=== PATIENT | female | born 1990 | race Caucasian/White ===

== ENCOUNTER 2019-10-23 12:52 | Outpatient (CLI) | payer OTHER, SELFPAY ==
--- NOTE | 2019-10-23 | ECHO_ITS ---
Patient Info Name: Gayle Overton Age: 28 years : 1990 Gender: Female Ht: 71 in Wt: 165 lbs BSA: 1.94 m2 HR: 60 bpm BP: 126 / 80 mmHg Heart Rhythm: Sinus Rhythm Exam Date: 10/23/2019 1:30 PM Exam Location: [facility] Pulmonary Patient Status: Outpatient Admit Date: 10/23/2019 Staff Ordering Physician: SajiNikhil DO Awning Installer: China Bradford RDCS Attending Provider: SajiNikhil DO Exam Type: CA echo doppler color flow Study Info Indications - HODGKINS LYMPHOMA Complete two-dimensional, color flow and Doppler transthoracic echocardiogram is performed. Summary 1. Left ventricular chamber dimension is mildly enlarged. 2. Left ventricular systolic function is mildly reduced, estimated at 50-55%. 3. There is mildly increased left ventricular wall thickness. 4. The left ventricular diastolic function is normal. 5. There is mild mitral valve regurgitation. 6. The mitral valve has thickened leaflets. 7. There is mild tricuspid valve regurgitation. 8. There is mild pulmonic regurgitation. Left Ventricle Left ventricular chamber dimension is mildly enlarged. Left ventricular systolic function is mildly reduced, estimated at 50-55%. There is mildly increased left ventricular wall thickness. Left ventricular septal wall motion is normal. The left ventricular diastolic function is normal. Right Ventricle Right ventricular chamber dimension is normal. Right ventricular systolic function is normal. Left Atria Left atrial chamber dimension is normal. Right Atria Right atrial chamber dimension is normal. Atrial Septum Intact interatrial septum visualized by color flow imaging. Aortic Valve The aortic valve is trileaflet. There is no aortic valve sclerosis. There is no aortic valve stenosis. There is trace aortic valve regurgitation. Pulmonic Valve The pulmonic valve is normal. There is no pulmonic valve stenosis. There is mild pulmonic regurgitation. Mitral Valve The mitral valve has thickened leaflets. There is no mitral valve stenosis. There is mild mitral valve regurgitation. Tricuspid Valve The tricuspid valve leaflets are normal. There is no significant tricuspid valve stenosis. There is mild tricuspid valve regurgitation. No pulmonary hypertension, estimated pulmonary arterial systolic pressure is 22 mmHg. Pericardium/Pleural The pericardium appears normal. There is no pericardial effusion. Inferior Vena Cava Normal inferior vena cava with >50% collapse upon inspiration consistent with normal right atrial pressure, 5 mmHg. Aorta The aortic root size at the sinus of Valsalva is normal. The prox ascending aorta size is normal. Left Ventricular Outflow Tract Name Value Normal LVOT 2D LVOT Diameter 2.0 cm LVOT Doppler LVOT Peak Gradient 4 mmHg LVOT Mean Gradient 2 mmHg LVOT VTI 19 cm LVOT VTI/AV VTI Ratio 0.7 LVOT Stroke Volume 58 ml LVOT CO 4.7 l/min
== END 2019-10-23 12:53 | disposition home or self-care (01) ==
PROVIDERS: PCP Student in an Organized Health Care Education/Training Program; Visit Provider Internal Medicine Medical Oncology
DX: C81.90 Hodgkin lymphoma, unspecified, unspecified site (principal); I08.3 Combined rheumatic disorders of mitral, aortic and tricuspid valves
CPT/HCPCS: 93306

== ENCOUNTER 2021-04-20 10:34 | Outpatient (RCR) | payer OTHER, SELFPAY ==
[2021-04-22 05:52] LABS: Progesterone 17.5 ng/mL (***)
== END 2021-07-16 23:59 | disposition home or self-care (01) ==
LOC: ANHLAB 10:34
PROVIDERS: PCP Student in an Organized Health Care Education/Training Program; Visit Provider Obstetrics & Gynecology
DX: O20.0 Threatened abortion (principal); Z3A.00 Weeks of gestation of pregnancy not specified
CPT/HCPCS: 36415; 84144; 84702; 86900; 86901

== ENCOUNTER 2021-08-07 16:04 | Emergency (ER) | payer OTHER, SELFPAY ==
--- NOTE | 2021-08-07 16:09 | ED.URI ---
HPI - URI/Sore Throat General Chief Complaint: Shortness of Breath/Dyspnea Stated Complaint: shortness of breath, chest feels heavy Time Seen by Provider: 08/07/21 16:05 Source: patient and RN notes reviewed History of Present Illness HPI Narrative: Patient is a 30-year-old female who presents the urgent care with complaints of difficulty taking a deep breath and chest heaviness. Patient states that she is 21 weeks and did speak to her CODER and her PCP and she was advised to go to the urgent care. Patient states that she does have a history of asthma which seems to have gotten worse in the last week. Patient has been using her inhaler with mild improvement. Patient is also been taking a daily Zyrtec. Only other upper respiratory complaint is nasal congestion. Patient denies of any chest pains. Denies of any changes on exacerbation with ambulation. Denies of any history of blood disorder or blood clot. No other acute complaints. No acute distress noted. Patient aware of the plan of care. Some parts of this dictation were generated by voice recognition software and may contain typographical and/or grammatical inaccuracies. Related Data Home Medications Medication Instructions Recorded Confirmed cetirizine [Zyrtec] 10 mg PO DAILY 08/07/21 08/07/21 [id number] 1 tablet PO POST-TRANSFUSION 08/07/21 08/07/21 [] Allergies Allergy/AdvReac Type Severity Reaction Status Date / Time Penicillins Allergy Unknown Verified 08/07/21 16:14 Review of Systems Review of Systems: CONSTITUTIONAL: Denies fever, chills, or sweats. EYES: Denies visual changes, redness, or discharge. ENT: Denies rhinorrhea, congestion, sore throat, or otalgia. CARDIOVASCULAR: Denies chest pain, palpitations, or edema. RESPIRATORY: Reports of intermittent dyspnea and chest heaviness GASTROINTESTINAL: Denies abdominal pain, nausea, vomiting, or diarrhea. GENITOURINARY: Denies dysuria or hematuria. SKIN: Denies rash or itching. MUSCULOSKELETAL: Denies back pain, joint pain, or myalgia. NEUROLOGIC: Denies headache, numbness, or weakness. All other systems reviewed are negative, except as documented in HPI. PMFSH Comments At the time of my signature, I reviewed and agree with the nursing past medical, surgical, social, and family history. There is no relevant family history pertinent to the patient complaint. Exam Narrative: GENERAL: This is a well-nourished, well-developed patient, in no apparent distress. HEAD: normocephalic, atraumatic. EYES: PERRL. Sclera clear/white. Vision is grossly intact. EARS: External ears normal, auditory canals clear and without drainage, TMs normal without perforation. Hearing grossly intact. NOSE: External nose normal with no obvious nasal discharge, bilateral erythemic nares with clear to yellow rhinorrhea THROAT: Mucous membranes moist, posterior pharynx clear. Moderate postnasal drainage NECK: Neck supple, CARDIOVASCULAR: Regular rate and rhythm without murmurs, gallops, or rubs. RESPIRATORY: Clear to auscultation. Breath sounds equal bilaterally. No wheezes, rales, or rhonchi. GASTROINTESTINAL: Abdomen soft, non-tender, nondistended. SKIN: warm, intact with no suspicious lesions or rash, good texture and turgor. NEURO: awake, alert, and oriented to person, place and time. There were no obvious focal neurologic abnormalities. EXTREMITIES: No clubbing, cyanosis, or edema. Course Course Level of Care: Express Care Visit Vital Signs Vital signs: Vital Signs Temperature 96.9 F L 08/07/21 16:12 Pulse Rate 80 08/07/21 16:12 Respiratory Rate 16 08/07/21 16:12 Blood Pressure 140/83 08/07/21 16:12 Pulse Oximetry 100 08/07/21 16:12 Temperature 96.9 F L 08/07/21 16:17 Pulse Rate 80 08/07/21 16:17 Respiratory Rate 16 08/07/21 16:17 Blood Pressure 140/83 08/07/21 16:17 Pulse Oximetry 100 08/07/21 16:17 Reviewed MDM - URI/Sore Throat MDM Narrative [facility]
[2021-08-07 16:12] VITALS: BP 140/83; PULSE 80; RESP 16; TEMP 36.1; O2SAT 100
[2021-08-07 16:17] VITALS: BP 140/83; PULSE 80; RESP 16; TEMP 36.1; O2SAT 100
== END 2021-08-07 16:37 | disposition home or self-care (01) ==
PROVIDERS: Emergency Provider Nurse Practitioner Family; PCP Student in an Organized Health Care Education/Training Program
DX: O26.892 Other specified pregnancy related conditions, second trimester (principal); J30.9 Allergic rhinitis, unspecified; Z3A.21 21 weeks gestation of pregnancy
CPT/HCPCS: 99213; G0463

== ENCOUNTER 2021-11-24 17:11 | Outpatient (CLI) | payer OTHER, SELFPAY ==
[2021-11-24 17:24] VITALS: BP 138/89; PULSE 84
[2021-11-24 17:30] VITALS: BP 138/77; PULSE 79
[2021-11-24 17:35] LABS: Basophils Percent Auto 0.3 % (0.2-1.2); Eosinophils Absolute Auto 0.1 K/mm3 (0-0.3); Eosinophils Percent Auto 1.1 % (0-4.4); Hematocrit 32.7 % (37.0-47.0); Hemoglobin 11.5 g/dL (12.0-15.0); Immature Granulocyte Absolute 0.16 K/mm3 (0.00-0.031); Immature Granulocyte Percent A 1.4 % (0-0.5); Lymphocytes Absolute Auto 2.47 K/mm3 (0.9-3.2); Lymphocytes Percent Auto 21.8 % (18.3-44.2); Mean Corpuscular HGB Conc 35.2 g/dl (32-36); Mean Corpuscular Hemoglobin 32.7 pg (26-34); Mean Corpuscular Volume 92.9 fl (80-100); Monocytes Absolute Auto 0.7 K/mm3 (0.1-0.6); Monocytes Percent Auto 6.1 % (2.6-8.5); Neutrophils Absolute Auto 7.9 K/mm3 (1.3-6.7); Neutrophils Percent Auto 69.3 % (45.5-73.1); Platelet Count Result 177 k/mm3 (150-375); Red Blood Count 3.52 M/mm3 (4.2-5.4); Red Cell Distribution Width 13.4 % (11.5-14.5); White Blood Count 11.3 K/mm3 (4.5-10.0)
[2021-11-24 17:45] VITALS: BP 130/80; PULSE 79
[2021-11-24 17:47] LABS: Alanine Aminotransferase 19 U/L (6-35); Albumin Level 3.9 g/dL (3.5-5.1); Alkaline Phosphatase 129 U/L (38-126); Anion Gap 12 mmol/L (8-16); Aspartate Amino Transferase 22 U/L (14-36); Bilirubin,Total 0.4 mg/dL (0.2-1.3); Blood Urea Nitrogen 7 mg/dL (7-17); Carbon Dioxide 20 mmol/L (22-30); Chloride 104 mmol/L (98-107); Estimated Glomerular Filt Rate > 60; Glucose 103 mg/dL (65-110); Potassium 3.8 mmol/L (3.4-5.0); Sodium 136 mmol/L (137-145); Uric Acid 4.9 mg/dL (2.5-7.5)
[2021-11-24 18:00] VITALS: BP 127/87; PULSE 73
[2021-11-24 18:30] VITALS: BP 120/75; PULSE 72
[2021-11-24 18:47] LABS: Appearance Urine Slightly Cloudy (Clear); Bilirubin Urine Negative (Negative); Blood Urine Negative (Negative); Color Urine Yellow (Yellow); Glucose Urine UA Negative (Negative); Ketones Urine Negative (Negative); Leukocyte Esterase Ur 2+ LEU/UL (NEGATIVE); Nitrate Urine Negative (Negative); Protein Urine Negative (Negative); Urobilinogen Urine 0.2 mg/dL (<2.0); pH Urine 6.5 (5.0-9.0)
[2021-11-24 18:53] LABS: Amorphous Sediment Urine Few; Bacteria Urine Trace /hpf; Mucus Urine Rare /lpf; RBC Urine 0-2 /hpf (0-2); Squamous Epithelial Cell Urine Few /hpf (Few)
[2021-11-24 18:54] LABS: Add Urine Microscopic? YES
[2021-11-24 19:03] LABS: Total Protein Urine Random 11 mg/dL; Ur Ttl Prot Creatinine Ratio 0.17 mg/mg (0-0.20)
--- NOTE | 2021-11-24 19:08 | PC.NURSE ---
Dr. Romero on unit. Lab results and BPs given. Tracing reviewed. August D/C home.
== END 2021-11-24 19:10 | disposition home or self-care (01) ==
LOC: ANHOBOP 17:15 → ANHOBPP 17:15
PROVIDERS: PCP Student in an Organized Health Care Education/Training Program; Visit Provider Obstetrics & Gynecology
DX: O13.9 Gestational [pregnancy-induced] hypertension without significant proteinuria, unspecified trimester (principal); Z3A.00 Weeks of gestation of pregnancy not specified
CPT/HCPCS: 36415; 59025; 80053; 81001; 82570; 84156; 84550; 85025; 87086; 99199

== ENCOUNTER 2021-12-01 17:42 | Inpatient (IN) | payer OTHER, SELFPAY ==
[2021-12-01] VITALS (12 sets, daily range): BP systolic 113–153; BP diastolic 66–83; PULSE 66–79; TEMP 36.6–36.8; BMI 29.2
--- OUTSIDE RECORDS SUMMARY | 2021-12-01 17:47 | XMS_ITS | Encounter Summary ---
:1990 Author Care Team Providers Name Role Phone Aidan Sheth DO Primary Care Provider [phone] Reason for Visit None recorded. Assessment and Plan 1. Hypertensive disorder ? non-stress test Discussion Note: None recorded.Patient educational handouts: No information available. Plan of Care Reminders Provider Appointments None recorded. ? ? Lab None recorded. ? ? Referral None recorded. ? ? Procedures None recorded. ? ? Surgeries None recorded. ? ? Imaging Non-stress Test 12/01/2021 [place] Medications Name Start Date ? ? ? Zyrtec ? Medications Administered None recorded. Vitals None recorded. Results Lab Results None recorded. Allergies Code Code System Name Reaction Severity Onset Penicillins ? ? ? Problems Name Status Onset Date Source ? Active 06/01/2021 ? Hodgkin's Disease (Clinical) Active ? ? Posttraumatic Stress Disorder Active ? ? Pruritic Urticarial Papules and Plaques of Active ? ? Uterine Size for Dates Discrepancy Active ? ? Tachycardia Active ? ? History of Craniotomy Active ? ? Procedures Date Name Performed by ? 04/04/2017 Biopsy of Lymph Node Information not malu ilable 04/04/2000 Procedure on Brain Information not avai lable 11/17/2021 US, Obstetric, Follow-up [place] [address] [place] [address]
--- OUTSIDE RECORDS SUMMARY | 2021-12-01 17:47 | XMS_ITS | Encounter Summary ---
:1990 Author Care Team Providers Name Role Phone Aidan Sheth DO Primary Care Provider [phone] Reason for Visit OB visit Assessment and Plan 1. Routine care Discussion Note: None recorded.Patient educational handouts: No information available. Plan of Care Reminders Provider Appointments None recorded. ? ? Lab None recorded. ? ? Referral None recorded. ? ? Procedures None recorded. ? ? Surgeries None recorded. ? ? Imaging None recorded. ? ? Medications Name Start Date ? ? ? Zyrtec ? Medications Administered None recorded. Vitals Height 5 ft 11 in Results Lab Results None recorded. Allergies Code [...] Procedure on Brain Information not avai lable 10/19/2021 US, Obstetric, Follow-up [place] [address] [place], [place]
--- OUTSIDE RECORDS SUMMARY | 2021-12-01 17:47 | XMS_ITS | Encounter Summary ---
:1990 Author Care Team Providers Name Role Phone Aidan Sheth DO Primary Care Provider [phone] Reason for Visit OB visit Assessment and Plan 1. -induced hypertension Discussion Note: None recorded.Patient educational handouts: No information available. Plan of Care Reminders Provider Appointments None recorded. ? ? Lab None recorded. ? ? Referral None recorded. ? ? Procedures None recorded. ? ? Surgeries None recorded. ? ? Imaging None recorded. ? ? Medications Name Start Date ? ? ? Zyrtec ? Medications Administered None recorded. Vitals Height Weight BMI Blood Pressure 5 ft 11 in 208 lbs 29 kg/m2 (1) 146/88 mm[H g] (2) 152/80 mm[Hg ] (3) 142/88 mm[Hg ] Results Lab Results None recorded. Allergies Code [...] ilable 04/04/2000 Procedure on Brain Information not bernadette bone
--- OUTSIDE RECORDS SUMMARY | 2021-12-01 17:47 | XMS_ITS ---
:1990 Author Care Team Providers Name Role Phone NINI SHARMA DO Primary Care Provider [phone] Allergies Code Code System Name Reaction Severity Status Onset Penicillins ? ? Active ? Penicillin g Benethamine ? ? Deact ivated ? Medications Name Status Start Date Stop Date ? ? alprazolam 0.25 mg tablet Completed ? 2020 TAKE 1 TO 2 TABLETS BY MOUTH EVERY 8 HOURS NEEDED azithromycin 250 mg tablet Completed ? 02/12 cetirizine 10 mg tablet Completed ? 05/14/19 clindamycin 2 % vaginal cream Completed ? INSERT 1 APPLICATORFUL VAGINALLY EVERY DAY hydroxyzine HCl Completed ? 09/01/2021 hydroxyzine HCl 25 mg tablet Completed ? 02/2021 metronidazole 0.75 % (37.5 mg/5 gram) vaginal gel Completed ? 09/01/2021 INSERT 1 APPLICATORFUL EVERY DAY BY VAGINAL ROUTE FOR 5 DAYS Active ? Not available Zyrtec Active ? Not available Problems Name Status Onset Date Source ? [...] Procedure on Brain Information not avai lable 04/28/2021 US, Obstetric, 1St Trimester [place] [address] [place] [address]
--- OUTSIDE RECORDS SUMMARY | 2021-12-01 17:47 | XMS_ITS | Encounter Summary ---
:1990 Author Care Team Providers Name Role Phone Aidan Sheth DO Primary Care Provider [phone] Reason for Visit None recorded. Assessment and Plan 1. Uterine size for dates discrepancy ? US, obstetric, follow-up Discussion Note: None recorded.Patient educational handouts: No information available. Plan of Care Reminders Provider Appointments None recorded. ? ? Lab None recorded. ? ? Referral None recorded. ? ? Procedures None recorded. ? ? Surgeries None recorded. ? ? Imaging US, Obstetric, Follow-up 11/17/2021 [place] Medications Name Start Date ? ? ? [...] not avai lable 10/19/2021 US, Obstetric, Follow-up [place] [address],
--- OUTSIDE RECORDS SUMMARY | 2021-12-01 17:47 | XMS_ITS | Encounter Summary ---
:1990 Author Care Team Providers Name Role Phone Aidan Sheth Primary Care Provider [phone] Reason for Visit OB visit Assessment and Plan 1. Routine care 2. Pruritic urticarial papules and plaq ues of 3. Uterine size for dates discrepancy Discussion Note: None recorded.Patient educational handouts: No [...] BMI Blood Pressure 5 ft 11 in 202 lbs 28.2 kg/m2 129/85 mm[Hg] Results Lab Results None recorded. Allergies Code [...] ilable 04/04/2000 Procedure on Brain Information not adriai smitha
--- OUTSIDE RECORDS SUMMARY | 2021-12-01 17:47 | XMS_ITS | Encounter Summary ---
:1990 Author Care Team Providers Name Role Phone Aidan Sheth DO Primary Care Provider [phone] Reason for Visit OB visit Assessment and [...] BMI Blood Pressure 5 ft 11 in 211 lbs 29.4 kg/m2 (1) 151/97 mm[H g] (2) 160/80 mm[Hg ] (3) 150/82 mm[Hg ] (4) 140/82 mm[Hg ] Results Lab Results None recorded. [...] Biopsy of Lymph Node Information not malu kary
--- OUTSIDE RECORDS SUMMARY | 2021-12-01 17:47 | XMS_ITS | Encounter Summary ---
:1990 Author Care Team Providers Name Role Phone Aidan Sheth DO Primary Care Provider [phone] Reason for Visit OB visit Assessment and [...] BMI Blood Pressure 5 ft 11 in 206 lbs 28.7 kg/m2 129/82 mm[Hg] Results Lab Results None recorded. Allergies [...] not avai lable 10/19/2021 US, Obstetric, Follow-up [place] [address] [address]
--- OUTSIDE RECORDS SUMMARY | 2021-12-01 17:48 | XMS_ITS | Encounter Summary ---
:1990 Author Care Team Providers Name Role Phone Aidan Sheth DO Primary Care Provider [phone] Reason for Visit None recorded. Assessment and Plan 1. screening ? US, obstetric, follow-up Discussion Note: None recorded.Patient educational handouts: No information available. Plan of Care Reminders Provider Appointments None recorded. ? ? Lab None recorded. ? ? Referral None recorded. ? ? Procedures None recorded. ? ? Surgeries None recorded. ? ? Imaging US, Obstetric, Follow-up 09/01/2021 [place] Medications Name Start Date ? [...] Procedure on Brain Information not avai lable 09/01/2021 US, Obstetric, Follow-up [place] [address] [place] [address]
--- OUTSIDE RECORDS SUMMARY | 2021-12-01 17:48 | XMS_ITS | Encounter Summary ---
:1990 Author Care Team Providers Name Role Phone Aidan Sheth DO Primary Care Provider [phone] Reason for Visit OB visit Assessment and [...] BMI Blood Pressure 5 ft 11 in 201 lbs 28 kg/m2 134/84 mm[Hg] Results Lab Results None recorded. Allergies [...] not avai lable 09/01/2021 US, Obstetric, Follow-up [place] [address]
[2021-12-01 18:27] LABS: Basophils Percent Auto 0.2 % (0.2-1.2); Eosinophils Absolute Auto 0.1 K/mm3 (0-0.3); Eosinophils Percent Auto 0.8 % (0-4.4); Hematocrit 32.4 % (37.0-47.0); Hemoglobin 11.4 g/dL (12.0-15.0); Immature Granulocyte Absolute 0.11 K/mm3 (0.00-0.031); Lymphocytes Absolute Auto 2.35 K/mm3 (0.9-3.2); Mean Corpuscular HGB Conc 35.2 g/dl (32-36); Mean Corpuscular Hemoglobin 32.1 pg (26-34); Mean Corpuscular Volume 91.3 fl (80-100); Mean Platelet Volume 10.1 fl (7.4-10.4); Monocytes Absolute Auto 0.8 K/mm3 (0.1-0.6); Monocytes Percent Auto 7.3 % (2.6-8.5); Neutrophils Absolute Auto 7.8 K/mm3 (1.3-6.7); Neutrophils Percent Auto 69.7 % (45.5-73.1); Platelet Count Result 176 k/mm3 (150-375); Red Blood Count 3.55 M/mm3 (4.2-5.4); Red Cell Distribution Width 13.2 % (11.5-14.5); White Blood Count 11.2 K/mm3 (4.5-10.0)
--- NOTE | 2021-12-01 18:35 | P.HP_ITS ---
H&P: HPI History of Present Illness Date/Time: 12/01/21 18:35 Chief Complaint: induction of labor Narrative: Gayle is a 30yo G1 at 38.1 for IOL PIH. she has white coat HTN/PTSD from Hodgkin's/craniotomy as a child but today in office BPs higher than her anxious normal-- up to 160 systolic and 97 diastolic. no sx. PIH labs wnl last week. NST in office reactive but with subtle prolonged 3 min decel to 120s from baseline of 140s. GBS neg. Baby AC measuring 95%. Review of Systems Review of Systems: All systems reviewed & are unremarkable except as noted in HPI and below [facility] Family History Family History (Updated 11/13/21 @ 13:34 by Boone Jo RN) Father FH: kidney cancer Grandparent Breast cancer in female Mother Hypertension Diabetes mellitus Social History Social History Smoking status: Never smoker Second hand tobacco smoke exposure: No Substance use: never Spiritual care concerns: No Meds Home Medications and Allergies Home Medications Medication Instructions Recorded Confirmed Type mzwrzpnh-hfw-Ys-FA 1 mg 1 tablet PO POST-TRANSFUSION 08/07/21 12/01/21 History tablet Allergies Allergy/AdvReac Type Severity Reaction Status Date / Time Penicillins Allergy Unknown Verified 08/07/21 16:14 Vital Signs Vital Signs - 24 hr 12/01/21 18:23 Pulse Rate 79 Blood Pressure 153/83 H Exam Const: General: no acute distress Resp: Effort & Inspection: normal respiratory effort Auscultation: clear to auscultation bilaterally Cardio: Rate: regular rate Rhythm: regular rhythm GI: GI Palp: Yes Soft to palpation Extrem: General: normal to inspection H&P: Results Labs Labs: Short CBC 12/01/21 Range/Units 18:07 WBC 11.2 H (4.5-10.0) K/mm3 Hgb 11.4 L (12.0-15.0) g/dL Hct 32.4 L (37.0-47.0) % Plt Count 176 (150-375) k/mm3 Assessment and Plan Assessment and plan (1) PIH ( induced hypertension): Code(s): O13.9 - Gestational [-induced] hypertension without significant proteinuria, unspecified trimester Status: Acute Plan pih labs pending iol AROM, pitocin in 4 hours if needed gbs neg monitor bps
[2021-12-01 18:40] LABS: Uric Acid 4.7 mg/dL (2.5-7.5)
[2021-12-01 18:55] LABS: Alanine Aminotransferase 12 U/L (6-35); Albumin Level 3.8 g/dL (3.5-5.1); Alkaline Phosphatase 135 U/L (38-126); Anion Gap 6 mmol/L (8-16); Aspartate Amino Transferase 26 U/L (14-36); Bilirubin,Total 0.3 mg/dL (0.2-1.3); Blood Urea Nitrogen 5 mg/dL (7-17); Calcium 10.9 mg/dL (8.4-10.2); Carbon Dioxide 21 mmol/L (22-30); Chloride 105 mmol/L (98-107); Estimated CRCL calculation 130 ml/min; Estimated Glomerular Filt Rate > 60; Glucose 102 mg/dL (65-110); Potassium 3.7 mmol/L (3.4-5.0); Sodium 132 mmol/L (137-145)
--- NOTE | 2021-12-01 18:57 | WPDANESEPP ---
Anes - Eval Pre Procedure Procedure: labor epidural Date/Time: 12/01/21 18:57 Pre Op Diagnosis: Induction of Labor Patient Data Age: 30 Gender: F Height: 1.8 m Weight: 95 kg Last Vital Signs Pulse 79 12/01/21 18:23 BP 153/83 H 12/01/21 18:23 Allergies Allergy/AdvReac Type Severity Reaction Status Date / Time Penicillins Allergy Unknown Verified 08/07/21 16:14 Home Medications Medication Instructions Recorded Confirmed Type [id number] 1 mg 1 tablet PO POST-TRANSFUSION 08/07/21 12/01/21 History tablet Laboratory Tests 12/01/21 12/01/21 12/01/21 18:06 18:07 18:07 WBC 11.2 K/mm3 H K/mm3 (4.5-10.0) RBC 3.55 M/mm3 L M/mm3 (4.2-5.4) Hgb 11.4 g/dL L g/dL (12.0-15.0) Hct 32.4 % L % (37.0-47.0) MCV 91.3 fl fl (80-100) MCH 32.1 pg pg (26-34) MCHC 35.2 g/dl g/dl (32-36) RDW 13.2 % % (11.5-14.5) Plt Count 176 k/mm3 k/mm3 (150-375) MPV 10.1 fl fl (7.4-10.4) Immature Gran % (Auto) 1.0 % H % (0-0.5) Neut % (Auto) 69.7 % % (45.5-73.1) Lymph % (Auto) 21.0 % % (18.3-44.2) [place] % (Auto) 7.3 % % (2.6-8.5) Eos % (Auto) 0.8 % % (0-4.4) Baso % (Auto) 0.2 % % (0.2-1.2) Lymph # (Auto) 2.35 K/mm3 K/mm3 (0.9-3.2) [place] # (Auto) 0.8 K/mm3 H K/mm3 (0.1-0.6) Eos # (Auto) 0.1 K/mm3 K/mm3 (0-0.3) Baso # (Auto) 0.0 K/mm3 K/mm3 (0.0-0.1) Abs Immat Gran (auto) 0.11 K/mm3 H K/mm3 (0.00-0.031) Absolute Neuts (auto) 7.8 K/mm3 H K/mm3 (1.3-6.7) Absolute Nucleated RBC 0.0 K/mm3 K/mm3 (0.0-0.012) Nucleated RBC % 0.0 % % (0.0-0.2) Sodium Potassium Chloride Carbon Dioxide Anion Gap BUN Creatinine Estim Creat Clear Calc Estimated GFR Glucose Uric Acid 4.7 mg/dL mg/dL (2.5-7.5) Calcium Total Bilirubin AST ALT Alkaline Phosphatase Total Protein Albumin RPR Blood Type Pending Antibody Screen Pending 12/01/21 12/01/21 18:07 18:07 WBC RBC Hgb Hct MCV MCH MCHC RDW Plt Count MPV Immature Gran % (Auto) Neut % (Auto) Lymph % (Auto) [place] % (Auto) Eos % (Auto) Baso % (Auto) Lymph # (Auto) [place] # (Auto) Eos # (Auto) Baso # (Auto) Abs Immat Gran (auto) Absolute Neuts (auto) Absolute Nucleated RBC Nucleated RBC % Sodium 132 mmol/L L mmol/L (137-145) Potassium 3.7 mmol/L mmol/L (3.4-5.0) Chloride 105 mmol/L mmol/L (98-107) Carbon Dioxide 21 mmol/L L mmol/L (22-30) Anion Gap 6 mmol/L L mmol/L (8-16) BUN 5 mg/dL L mg/dL (7-17) Creatinine 0.70 mg/dL mg/dL (0.7-1.0) Estim Creat Clear Calc 130 ml/min ml/min Estimated GFR > 60 (59 - ) Glucose 102 mg/dL mg/dL (65-110) Uric Acid Calcium 10.9 mg/dL H mg/dL (8.4-10.2) Total Bilirubin 0.3 mg/dL mg/dL (0.2-1.3) AST 26 U/L U/L (14-36) ALT 12 U/L U/L (6-35) Alkaline Phosphatase 135 U/L H U/L (38-126) Total Protein 7.0 g/dL g/dL (6.3-8.2) Albumin 3.8 g/dL g/dL (3.5-5.1) RPR Pending Blood Type Antibody Screen Patient hx anesthesia problems: none Family hx anesthesia problems: none Results Review: All pre-operative results and documents have been reviewed as part of the pre-operative evaluation. PMFSH Family History Family History
[2021-12-02] VITALS (130 sets, daily range): BP systolic 86–153; BP diastolic 38–96; PULSE 26–157; RESP 16–18; TEMP 36.4–36.7; O2SAT 90–100
[2021-12-02] MEDS: LACTATED RINGERS 1,000 ML 125 ML IV CONT ×2 (01:35→05:07)
[2021-12-02] MEDS: ONDANSETRON INJ 4 MG/2 ML VIAL IV PUSH (07:08)
[2021-12-02 07:55] LABS: Rapid Plasma Reagin Non-Reactive (NonReactive)
[2021-12-02] MEDS: OXYTOCIN 30 UNITS/NS 500 ML 30 UNITS/500 ML BAG 999 UNITS IV CONT (09:58)
--- NOTE | 2021-12-02 10:04 | PM.OBPRVD ---
OB - Delivery Note Procedure Delivery date: 12/02/21 Procedure: Events: Gestational Hypertension Induction method: AROM Delivery monitor: External FHT and External Uterine Laceration Description: Perineal - 2nd Degree Delivery repair: vicryl Quantitative Blood Loss (ml): 320 Anesthesia type: Epidural Disposition: Floor Narrative: With adequate expulsive efforts by the mother, the baby's head was delivered OA. The baby's anterior shoulder was delivered under the pubic symphysis without difficulty. The posterior shoulder and the rest of the baby delivered without difficulty. The infant was placed on the mothers chest and suctioned and stimulated. The cord was clamped and cut after 30 seconds. Mother and baby both stable. [place] Baby Date of : 12/02/21 Time of : 09:43 Weeks of gestation at delivery: 38 gender: Female Weight (pounds): 8 Weight (ounces): 4 presentation: vertex Placenta delivery description: Spontaneous Cord Vessel Description: 3 Vessels and Delayed Cord Clamping score one minute: 8 score five minutes: 9
[2021-12-02] MEDS: IBUPROFEN 600 MG TABLET PO ×2 (11:57→18:47)
[2021-12-02] MEDS: WITCH HAZEL 40 PADS 1 PAD TOPICAL (11:58)
[2021-12-02] MEDS: BENZOCAINE 20% AER SPR (*SP) 56 GM CAN 1 SPRAY TOPICAL (11:58)
--- NOTE | 2021-12-02 16:18 | PC.NURSE ---
[id number] Introductions were made, then consulted with patient to assess needs related to . Mother led the conversation with her?plans to feed?her infant and the?experience so far. Resources provided for inpatient and outpatient services using a resource guide and mom/baby guide. Mother voiced understanding of information and requested assistance. Primary RN is at bedside. Mother works well with her infant with encouragement and education. Encouraged understanding of the benefits of skin to skin (unwrapping and placing vertically on her chest), responsive feeding and how to watch for early feeding signs, frequency of feeding on demand about every 8-12 times in 24 hours (every 2-3 hours), milk production, duration of feeding, signs of adequate intake/output and how to record on the feeding sheet. Reviewed massage touch with skin to skin, hand expression reviewed and practiced, and is sleepy and reluctant. Resources used to facilitate learning were used with the visual handouts, QR code videos, tool, mom and baby guide. Mother voiced understanding of responsive feedings, stimulating with skin to skin, hand expressed colostrum, massage touch, position changes, and talking to infant to encourage if it has been 2 -3 hours since the start of the last , to call if infant does not latch, difficulty waking infant for feeding or there is discomfort with . Reported to the primary RN.
[2021-12-02] MEDS: DOCUSATE SODIUM 100 MG CAPSULE PO (17:09)
[2021-12-03] MEDS: IBUPROFEN 600 MG TABLET PO ×4 (02:33→22:51)
[2021-12-03 04:40] VITALS: BP 112/78; PULSE 80; RESP 18; TEMP 36.6
[2021-12-03 05:31] LABS: Hematocrit 23.8 % (37.0-47.0); Hemoglobin 8.1 g/dL (12.0-15.0)
--- NOTE | 2021-12-03 07:30 | PC.NURSE ---
PT introductions made and plan of care discussed per post , pain management, breast feeding, daily care activities and PIH symptoms. PT and spouse both received instructions via one to one discussion, mom baby care guide and demonstrations this shift. NO barriers to learning identified at this time. PT verbalized understanding of such care.
--- NOTE | 2021-12-03 07:38 | WPDANLDPN2 ---
Anes-Prog Note L&D Date/Time: 12/03/21 07:38 Comfortable throughout: labor and delivery Neuraxial method: epidural Epidural/Spinal procedure site: clean & non-tender Neuro status: Neuro function grossly intact. Cardiovascular status: normal Respiratory status: normal Airway patency: baseline Mental status: baseline Post-Op hydration status: normal Vital Signs: Last Vital Signs Temp 36.6 C 12/03/21 04:40 Pulse 80 12/03/21 04:40 Resp 18 12/03/21 04:40 BP 112/78 12/03/21 04:40 Pulse Ox 98 12/02/21 17:15 O2 Del Method Room Air 12/02/21 20:00 Pain score (VAS): 0 I/O: Intake & Output 12/02/21 12/02/21 12/03/21 15:59 23:59 07:59 Intake Total 8056 111 4567 Output Total 370 1850 Balance 1130 500 -850 Post-procedural complaints: none Patient feedback: Patient satisfied with anesthetic care.
[2021-12-03 07:50] VITALS: BP 121/74; PULSE 86; RESP 18; TEMP 36.4; O2SAT 98
--- NOTE | 2021-12-03 08:08 | PM.OBPNVD ---
OB - PN: Subj Subjective Date/time seen: 12/03/21 08:08 Patient comments: no complaints, pain well controlled, incisional pain, tolerating diet and flatus present OB - PN: Obj Data Labs CBC & Chem 7: 12/03/21 04:54 12/01/21 18:07 Labs: Laboratory Results - last 24 hr 12/03/21 04:54 Hgb 8.1 L D Hct 23.8 L OB - PN A/P Plan day: 1 Plan: routine care Comments: No problems, routine care Time Spent With Patient Time: Total time spent is greater than 50% in coordination of care (as documented) at patient's floor/unit and/or counseling patient: Exam Const: General: comfortable, no acute distress and alert Resp: Effort & Inspection: normal respiratory effort Auscultation: no crackles, no rales and no rhonchi Cardio: Rate: regular rate Heart sounds: no click, no murmurs and no rubs GI: Inspection: non-distended GI Palp: No Tenderness to palpation present (GI) Auscultation: normal bowel sounds Other: Incision - CDI Extrem: General: normal to inspection, no pedal edema and no calf tenderness
[2021-12-03 09:40] VITALS: PULSE 91; RESP 16; O2SAT 99
[2021-12-03] MEDS: LANOLIN (LANSINOH) 7.5 GM CREAM 1 APPLIC TOPICAL (09:40)
[2021-12-03] MEDS: DOCUSATE SODIUM 100 MG CAPSULE PO ×2 (09:40→16:15)
[2021-12-03] MEDS: POLYSACCHARIDE IRON COMPLEX 150 MG CAPSULE PO ×2 (09:41→16:15)
[2021-12-03] MEDS: MULTIVIT/MIN/PREN/FOL AC/IRON TABLET 1 TAB PO (09:41)
--- NOTE | 2021-12-03 09:47 | PC.NURSE ---
[id number] Consulted with patient to assess needs related to . is skin to skin with father of the baby. Mother led conversation with her experience with feeding baby through the night. Mother works well with her infant with encouragement. Reviewed working with infant, using the sandwich hold with the breast, stimulating the nipples and how to protect the nipples with an optimal deep latch, good positioning, and good hand washing. Encouraged understanding the benefits of skin to skin, responding to feeding cues, frequencies of feeding 8-12 times in 24 hours (approximately 2-3 hours), duration of feedings, milk production, intake/output feeding sheet and signs of adequate intake encouraging swallowing at the breast. Mother doesn't express colostrum with hand expression at this time but demonstrates good technique working with her breast. Reviewed positioning and alignment, supporting breast, off-centered (asymmetrical latch) and leading with the chin with big open wide gape. Infant latched right breast in cross cradle position. Infant attempted to suck a few times with good rocking jaw movement, then held the nipple in her mouth. After attempting to encourage and latch for 20 min without an optimal latch, infant went to father of the baby so mother could eat her breakfast. was not able to maintain latch beyond a few sucks each time. is sleepy and reluctant. Nipple care reviewed with optimal latch and good positioning. Discussed the risks and benefits of using the nipple shield and pumping. Encouraged hand expression and pumping for stimulating the milk production if continues to not latch or mother uses the nipple shield. Mother voiced understanding of the education shared, calling for assistance if the does not latch, difficulty waking to latch, or if there is discomfort with . Reported to the primary RN.
[2021-12-03 11:59] VITALS: BP 123/74; PULSE 91; RESP 16; TEMP 36.5; O2SAT 99
--- NOTE | 2021-12-03 12:03 | PC.NURSE ---
[id number] Mother is skin to skin with her infant. Mother states she finished an attempt to latch her infant. Blood sugar was checked and resulted at 51 mg/dl. Breast pump provided due to ineffective . Instructions given on cleaning, care, usage, that there should be no pain, pumping schedule for milk production, collection, and storage of human milk. Parents are encouraged to record pumping schedule on the feeding sheet. Patient was assessed for correct placement, flange size, to pump for comfort and nipple stretching/stimulation for adequate milk production every 3 hours (8 times in 24 hours) 1-2 times at night if is not latching, or if she is using a nipple shield with every feeding. Mother voiced understanding of the education shared along with mom and baby guide for additional resource information. Reported to the primary RN.
--- NOTE | 2021-12-03 12:57 | PC.NURSE ---
[id number] - Father of baby finger fed while the 1 ml of pumped colostrum was given to the via a syringe. With infant quiet, alert, and awake mother spent some time practicing latching infant to the breast using football positioning the sandwich hold of the breast. There were rare latches with good rocking motion and no misshaped nipple. Several attempts were made to each breast over a 20 minute time span, then mother was encouraged to eat lunch and more attempts can be made later. Mother voiced understanding of calling for assistance if her did not latch, there's pain with latching, needs assistance stimulating infant to breastfeed 2 1/2 hours after the start of the last feeding, or assistance pumping and collecting milk. Reported to the Primary RN
[2021-12-03 16:00] VITALS: BP 125/83
[2021-12-03 19:30] VITALS: BP 115/75; PULSE 88; RESP 16; TEMP 36.4; O2SAT 99
[2021-12-04 04:30] VITALS: BP 119/79
[2021-12-04] MEDS: IBUPROFEN 600 MG TABLET PO (05:46)
--- NOTE | 2021-12-04 07:41 | PM.OBPNVD ---
OB - PN: Subj Subjective Date/time seen: 12/04/21 07:41 Patient comments: no complaints and pain well controlled baby status: doing well [place] feeding status: breast and bottle feeding OB - PN: Obj Data Labs CBC & Chem 7: 12/03/21 04:54 12/01/21 18:07 OB - PN A/P Plan day: 2 Plan: routine care and discharge home Time Spent With Patient Time: Total time spent is greater than 50% in coordination of care (as documented) at patient's floor/unit and/or counseling patient: Time with patient: less than 15 minutes Exam Narrative: NAD abdomen soft, nontender, fundus firm below the umbilicus Extremities nontender, 1+ edema
--- NOTE | 2021-12-04 07:44 | PM.DS ---
DS: Admitting Diagnosis Discharge Date 12/03/21 Admitting Diagnosis IUP 38.2, PIH DS: Discharge Diagnosis Discharge Diagnosis (1) , delivered: Code(s): O80 - Encounter for full-term uncomplicated delivery Status: Acute DS: Summary Hospital Course Hospital Course: Gayle was admitted for IOL for PIH at term. She proceeded to have an uncomplicated vaginal delivery and course. She was discharged on PPD 2. Status at Discharge Functional status at discharge: independent ambulation Time Spent with Patient Time attestation: Total time spent providing and/or coordinating discharge services: Exam Narrative: NAD abdomen soft, appropriately tender Ext non tender, 1+ edema Discharge Plan Discharge Attending physician on discharge: Ellen Romero Discharging Clinician: Ellen Romero Anticipated Discharge Date/Time: 12/04/21 07:42 Patient Disposition: Home, Self-Care Activity: pelvic rest Diet: regular Discharge Instructions: Take over the counter iron daily for 60 days. Patient Instructions: Antibiotic Form Stand Alone Forms: General Discharge Information Follow-up/Referrals: Ellen Romero MD [Physician] - 4 Weeks Discharge Medications: Continued 1 mg Tablet 1 tablet PO POST-TRANSFUSION Date of admission: 12/01/21 17:42 Primary Care Provider: Domenic,Aidan Admitting Provider: Ellen Romero Attending physician on admission: Ellen Romero Condition: Stable
[2021-12-04 08:05] VITALS: BP 120/80; PULSE 80; RESP 16; TEMP 36.5; O2SAT 99
[2021-12-04] MEDS: DOCUSATE SODIUM 100 MG CAPSULE PO (09:54)
[2021-12-04] MEDS: POLYSACCHARIDE IRON COMPLEX 150 MG CAPSULE PO (09:54)
[2021-12-04] MEDS: MULTIVIT/MIN/PREN/FOL AC/IRON TABLET 1 TAB PO (09:54)
[2021-12-07 07:58] VITALS: BP 127/87; PULSE 81; RESP 20; TEMP 37.1; O2SAT 100
== END 2021-12-04 10:32 | disposition home or self-care (01) | DRG 807 ==
LOC: ANHLDR 12-02 13:58 → ANHOB2 12-02 14:37
PROVIDERS: Admitting Provider Obstetrics & Gynecology; PCP Student in an Organized Health Care Education/Training Program; Visit Provider Obstetrics & Gynecology
DX: O13.4 Gestational [pregnancy-induced] hypertension without significant proteinuria, complicating childbirth (principal); Z37.0 Single live birth; O70.1 Second degree perineal laceration during delivery; O76 Abnormality in fetal heart rate and rhythm complicating labor and delivery; Z3A.38 38 weeks gestation of pregnancy; Z88.0 Allergy status to penicillin
CPT/HCPCS: 36415; 80053; 84550; 85014; 85018; 85025; 86592; 86850; 86900; 86901; A9270; J2405; J2590; J2795; J7120

== ENCOUNTER 2022-10-15 11:44 | Outpatient (CLI) | payer OTHER, SELFPAY ==
[2022-10-20 14:16] LABS: Progesterone 8.8 ng/mL (***)
== END 2022-10-15 11:45 | disposition home or self-care (01) ==
LOC: ANHLAB 11:45
PROVIDERS: PCP Student in an Organized Health Care Education/Training Program; Visit Provider Obstetrics & Gynecology
DX: O26.843 Uterine size-date discrepancy, third trimester (principal); Z3A.36 36 weeks gestation of pregnancy
CPT/HCPCS: 36415; 84144; 84702

== ENCOUNTER 2022-10-17 10:09 | Outpatient (CLI) | payer OTHER, SELFPAY | END 2022-10-17 10:10 | disposition home or self-care (01) | LOC: ANHOBOP 10:17 | PROVIDERS: PCP Student in an Organized Health Care Education/Training Program; Visit Provider Obstetrics & Gynecology | DX: O26.843 Uterine size-date discrepancy, third trimester (principal); Z3A.36 36 weeks gestation of pregnancy | CPT/HCPCS: 36415; 84702 ==

== ENCOUNTER 2022-12-31 15:14 | Outpatient (RCR) | payer OTHER, SELFPAY ==
[2022-12-29 17:40] LABS: Beta HCG Quantitative 79.65 mIU/ML
[2022-12-31 16:15] LABS: Beta HCG Quantitative 187.65 mIU/ML
== END 2023-03-29 23:59 | disposition home or self-care (01) ==
LOC: ANHLAB 15:14
PROVIDERS: PCP Student in an Organized Health Care Education/Training Program; Visit Provider Obstetrics & Gynecology
DX: N91.2 Amenorrhea, unspecified (principal)
CPT/HCPCS: 36415; 84702

== ENCOUNTER 2023-08-01 16:19 | Outpatient (CLI) | payer OTHER, SELFPAY ==
[2023-08-01] VITALS (12 sets, daily range): BP systolic 148–149; BP diastolic 81–89; PULSE 76–90; O2SAT 97–100
--- NOTE | 2023-08-01 16:32 | ECG_ITS ---
SEE SCANNED COPY FOR CONFIRMED REPORT MTDD
[2023-08-01 16:51] LABS: Basophils Absolute Auto 0.1 K/mm3 (0.0-0.1); Basophils Percent Auto 0.4 % (0.2-1.2); Eosinophils Absolute Auto 0.1 K/mm3 (0-0.3); Hematocrit 33.2 % (37.0-47.0); Hemoglobin 11.4 g/dL (12.0-15.0); Immature Granulocyte Absolute 0.33 K/mm3 (0.00-0.031); Immature Granulocyte Percent A 2.5 % (0-0.5); Lymphocytes Absolute Auto 2.59 K/mm3 (0.9-3.2); Mean Corpuscular HGB Conc 34.3 g/dl (32-36); Mean Corpuscular Hemoglobin 32.3 pg (26-34); Mean Corpuscular Volume 94.1 fl (80-100); Mean Platelet Volume 10.1 fl (7.4-10.4); Monocytes Absolute Auto 0.8 K/mm3 (0.1-0.6); Neutrophils Absolute Auto 9.1 K/mm3 (1.3-6.7); Neutrophils Percent Auto 70.1 % (45.5-73.1); Platelet Count Result 155 k/mm3 (150-375); Red Blood Count 3.53 M/mm3 (4.2-5.4); Red Cell Distribution Width 13.3 % (11.5-14.5)
[2023-08-01 17:03] LABS: Alanine Aminotransferase 13 U/L (6-35); Albumin Level 3.9 g/dL (3.5-5.1); Alkaline Phosphatase 84 U/L (38-126); Anion Gap 6 mmol/L (4-12); Aspartate Amino Transferase 19 U/L (14-36); Bilirubin,Total 0.5 mg/dL (0.2-1.3); Blood Urea Nitrogen 9 mg/dL (7-17); Calcium 8.9 mg/dL (8.4-10.2); Carbon Dioxide 19 mmol/L (22-30); Chloride 108 mmol/L (98-107); Estimated Glomerular Filt Rate > 60; Glucose 98 mg/dL (65-110); Potassium 3.6 mmol/L (3.4-5.0); Sodium 133 mmol/L (137-145)
[2023-08-01 17:07] LABS: Creatinine Urine 40.4 mg/dL; Total Protein Urine Random 14 mg/dL; Ur Ttl Prot Creatinine Ratio 0.35 mg/mg (0-0.20)
[2023-08-01 17:12] LABS: Appearance Urine Clear (Clear); Bacteria Urine Rare /hpf; Bilirubin Urine Negative (Negative); Blood Urine Negative (Negative); Color Urine Yellow (Yellow); Glucose Urine UA Negative (Negative); Ketones Urine 1+ mg/dL (Negative); Leukocyte Esterase Ur 1+ LEU/UL (Negative); Need Manual Microscopic Reviewed; Nitrate Urine Negative (Negative); Non Pathogenic Casts 0-2; Protein Urine Negative (Negative); RBC Urine 0-2 /hpf (0-2); Specific Grav Ur 1.007 (1.001-1.035); Squamous Epithelial Cell Urine Few /hpf (Few); Urobilinogen Urine 0.2 mg/dL (<2.0); WBC Urine 0-5 /hpf (0-3)
[2023-08-01 17:16] LABS: Add Urine Microscopic? YES
== END 2023-08-01 17:34 | disposition home or self-care (01) ==
LOC: ANHOBOP 16:24 → ANHOBPP 16:27
PROVIDERS: PCP Student in an Organized Health Care Education/Training Program; Visit Provider Obstetrics & Gynecology
DX: R00.2 Palpitations (principal); O13.9 Gestational [pregnancy-induced] hypertension without significant proteinuria, unspecified trimester; Z3A.00 Weeks of gestation of pregnancy not specified
CPT/HCPCS: 36415; 59025; 80053; 81001; 82570; 84156; 84550; 85025; 93005; 99199

== ENCOUNTER 2023-08-04 15:19 | Outpatient (RCR) | payer OTHER, SELFPAY ==
[2023-08-04 19:05] VITALS: BP 146/86; PULSE 81
== END 2023-09-19 08:23 | disposition home or self-care (01) ==
LOC: ANHOBOP 15:19
PROVIDERS: PCP Student in an Organized Health Care Education/Training Program; Visit Provider Obstetrics & Gynecology
DX: O26.893 Other specified pregnancy related conditions, third trimester (principal); R03.0 Elevated blood-pressure reading, without diagnosis of hypertension; Z3A.35 35 weeks gestation of pregnancy
CPT/HCPCS: 59025

== ENCOUNTER 2023-08-12 06:39 | Inpatient (IN) | payer OTHER, SELFPAY ==
[2023-08-12] VITALS (101 sets, daily range): BP systolic 109–154; BP diastolic 52–97; PULSE 63–238; TEMP 36.6; O2SAT 97–100; BMI 29.5
[2023-08-12 08:11] LABS: Basophils Percent Auto 0.3 % (0.2-1.2); Eosinophils Absolute Auto 0.1 K/mm3 (0-0.3); Eosinophils Percent Auto 0.9 % (0-4.4); Hematocrit 33.5 % (37.0-47.0); Hemoglobin 11.8 g/dL (12.0-15.0); Immature Granulocyte Absolute 0.26 K/mm3 (0.00-0.031); Immature Granulocyte Percent A 2.4 % (0-0.5); Lymphocytes Absolute Auto 1.85 K/mm3 (0.9-3.2); Lymphocytes Percent Auto 17.1 % (18.3-44.2); Mean Corpuscular HGB Conc 35.2 g/dl (32-36); Mean Corpuscular Hemoglobin 32.7 pg (26-34); Mean Corpuscular Volume 92.8 fl (80-100); Mean Platelet Volume 10.2 fl (7.4-10.4); Monocytes Absolute Auto 0.7 K/mm3 (0.1-0.6); Monocytes Percent Auto 6.3 % (2.6-8.5); Neutrophils Absolute Auto 7.9 K/mm3 (1.3-6.7); Platelet Count Result 140 k/mm3 (150-375); Red Blood Count 3.61 M/mm3 (4.2-5.4); White Blood Count 10.8 K/mm3 (4.5-10.0)
[2023-08-12 08:21] LABS: Alanine Aminotransferase 13 U/L (6-35); Albumin Level 3.6 g/dL (3.5-5.1); Alkaline Phosphatase 79 U/L (38-126); Anion Gap 8 mmol/L (4-12); Aspartate Amino Transferase 18 U/L (14-36); Bilirubin,Total 0.5 mg/dL (0.2-1.3); Blood Urea Nitrogen 9 mg/dL (7-17); Calcium 9.7 mg/dL (8.4-10.2); Carbon Dioxide 18 mmol/L (22-30); Chloride 110 mmol/L (98-107); Estimated Glomerular Filt Rate > 60; Glucose 102 mg/dL (65-110); Potassium 3.5 mmol/L (3.4-5.0); Sodium 136 mmol/L (137-145)
[2023-08-12] MEDS: miSOPROStol 25 MCG TABLET 50 MCG BY MOUTH ×2 (08:43→12:47)
--- NOTE | 2023-08-12 08:47 | LDADM ---
This patient, Gayle Overton, was admitted to Labor/Delivery/Recovery 102 on 08/12/23 at 06:39. Plans for labor, pain management and were discussed with patient. Patient/family oriented to hospital policies and general routines including ID bracelet, bed and alarms, visiting hours, pain management, procedures, bathroom and other care routines, personal items, smoking policy, room service/diet and guest tray routines, security routines, and visiting hours. Patient/Family are encouraged to report perceived risks to care and to ask questions if they do not understand what they are told or what they should do. See OBIX for further documentation.
[2023-08-12 11:19] LABS: Rapid Plasma Reagin Non-Reactive (NonReactive)
--- NOTE | 2023-08-12 11:38 | PM.IMHP ---
H&P: HPI History of Present Illness Date/Time: 08/12/23 11:38 Chief Complaint: preeclampsia without severe features Narrative: Patient is a 32 year old who presents for medical induction of labor, indicated for preeclampsia without severe features. She denies a history of cHTN in this . testing and labwork has been unremarkable. On admission, her blood pressure was 120s/80s. Her has been otherwise uncomplicated. She denies contractions, vaginal bleeding and leakage of fluid, and reports good movement. Review of Systems Review of Systems: All systems reviewed & are unremarkable except as noted in HPI and below PMFSH Family History Family History Father FH: kidney cancer Grandparent Breast cancer in female Mother Hypertension Diabetes mellitus Social History Social History Smoking status: Never smoker Second hand tobacco smoke exposure: No Substance use: never Do You Feel Safe in your Home?: Yes Lack of Transportation: No Lack of Food: Never True Current Housing: I Have Housing Concerned About Future Housing: No Difficulty Paying Gas/Electric Bills: No Difficulty Paying for Meds: No Currently Unemployed: No Education: Master's Degree or Higher Difficulty w/ Childcare or Family Care: No Spiritual care concerns: No Meds Home Medications and Allergies Home Medications Medication Instructions Recorded Confirmed Type mgnbvfwi-epy-[id number] 1 mg 1 tablet PO DAILY 08/07/21 08/12/23 History tablet aspirin 81 mg capsule 81 mg PO DAILY 08/04/23 08/12/23 History levothyroxine 25 mcg tablet 25 mcg PO DAILY 08/04/23 08/12/23 History Allergies Allergy/AdvReac Type Severity Reaction Status Date / Time Penicillins Allergy Unknown Verified 08/04/23 15:41 Vital Signs Vital Signs - 24 hr 08/12/23 08:45 08/12/23 08:56 08/12/23 08:59 Temperature Pulse Rate 83 83 Blood Pressure 118/78 117/74 Oxygen Delivery Room Air 08/12/23 09:14 08/12/23 09:30 08/12/23 09:45 Temperature Pulse Rate 85 81 78 Blood Pressure 118/72 120/85 122/82 Oxygen Delivery 08/12/23 09:00 08/12/23 10:00 08/12/23 10:15 Temperature 97.9 F Pulse Rate 95 82 Blood Pressure 134/76 124/74 Oxygen Delivery 08/12/23 10:30 08/12/23 10:45 08/12/23 11:00 Temperature Pulse Rate 85 85 90 Blood Pressure 119/69 122/69 131/79 Oxygen Delivery Exam Const: General: comfortable and no acute distress Eyes: General: appearance normal, both eyes and all related structures Neck: Neck: supple Resp: Effort & Inspection: normal respiratory effort Cardio: Rate: regular rate Rhythm: regular rhythm GI: GI Palp: Yes Soft to palpation and No Tenderness to palpation present (GI) : Other: SVE 0.5cm/50/-2 Skin: General skin exam: normal color Neuro: General: gait normal Extrem: General: normal to inspection Psych: Mental Status: mental status grossly normal H&P: Results Labs Labs: Short CBC 08/12/23 Range/Units 07:54 WBC 10.8 H (4.5-10.0) K/mm3 Hgb 11.8 L (12.0-15.0) g/dL Hct 33.5 L (37.0-47.0) % Plt Count 140 L (150-375) k/mm3 BMP 08/12/23 07:54 Sodium 136 L Potassium 3.5 Chloride 110 H Carbon Dioxide 18 L BUN 9 Creatinine 0.60 L Glucose 102 Calcium 9.7 Liver Function 08/12/23 Range/Units 07:54 Total Bilirubin 0.5 (0.2-1.3) mg/dL AST 18 (14-36) U/L ALT 13 (6-35) U/L Alkaline Phosphatase 79 (38-126) U/L Albumin 3.6 (3.5-5.1) g/dL Assessment and Plan Assessment and plan (1) Pre-eclampsia affecting , antepartum: Code(s): O14.90 - Unspecified pre-eclampsia, unspecified trimester Status: Acute Assessment and Plan: - preeclampsia without severe features - asymptomatic - BP 110s-120/80s since admission;
--- NOTE | 2023-08-12 16:58 | PM.OBPNLAB ---
Pain Control Date/time seen: 08/12/23 16:58 Comments: SVE /-2 AROM, moderate amount of clear, odorless fluid, anticipate vaginal delivery
[2023-08-12] MEDS: LACTATED RINGERS 500 ML 999 ML IV CONT (17:27)
[2023-08-12] MEDS: LACTATED RINGERS 1,000 ML 125 ML IV CONT (18:32)
--- NOTE | 2023-08-12 18:44 | WPDANESEPPF ---
Anes - Initial Pre Proc Eval Procedure: labor epidural Date/Time: 08/12/23 18:44 Surgeon: Derek Hartman MD Pre Op Diagnosis: labor pain Pre Op Diagnosis: Induction of Labor Patient Data Age: 32 Gender: F Height: 1.8 m Weight: 96 kg Last Vital Signs Temp 36.6 C 08/12/23 17:30 Pulse 91 08/12/23 18:39 BP 134/82 08/12/23 18:39 Pulse Ox 99 08/12/23 18:40 O2 Del Method Room Air 08/12/23 08:45 Allergies Allergy/AdvReac Type Severity Reaction Status Date / Time Penicillins Allergy Unknown Verified 08/04/23 15:41 Home Medications Medication Instructions Recorded Confirmed Type chmixeaz-zee-Rr-FA 1 mg 1 tablet PO DAILY 08/07/21 08/12/23 History tablet aspirin 81 mg capsule 81 mg PO DAILY 08/04/23 08/12/23 History levothyroxine 25 mcg tablet 25 mcg PO DAILY 08/04/23 08/12/23 History Laboratory Tests 08/12/23 07:54 WBC 10.8 H K/mm3 (4.5-10.0) RBC 3.61 L M/mm3 (4.2-5.4) Hgb 11.8 L g/dL (12.0-15.0) Hct 33.5 L % (37.0-47.0) MCV 92.8 fl (80-100) MCH 32.7 pg (26-34) MCHC 35.2 g/dl (32-36) RDW 13.0 % (11.5-14.5) Plt Count 140 L k/mm3 (150-375) MPV 10.2 fl (7.4-10.4) Immature Gran % (Auto) 2.4 H % (0-0.5) Neut % (Auto) 73.0 % (45.5-73.1) Lymph % (Auto) 17.1 L % (18.3-44.2) [place] % (Auto) 6.3 % (2.6-8.5) Eos % (Auto) 0.9 % (0-4.4) Baso % (Auto) 0.3 % (0.2-1.2) Lymph # (Auto) 1.85 K/mm3 (0.9-3.2) [place] # (Auto) 0.7 H K/mm3 (0.1-0.6) Eos # (Auto) 0.1 K/mm3 (0-0.3) Baso # (Auto) 0.0 K/mm3 (0.0-0.1) Abs Immat Gran (auto) 0.26 H K/mm3 (0.00-0.031) Absolute Neuts (auto) 7.9 H K/mm3 (1.3-6.7) Absolute Nucleated RBC 0.000 K/mm3 (0.0-0.012) Nucleated RBC % 0.0 % (0.0-0.2) Sodium 136 L mmol/L (137-145) Potassium 3.5 mmol/L (3.4-5.0) Chloride 110 H mmol/L (98-107) Carbon Dioxide 18 L mmol/L (22-30) Anion Gap 8 mmol/L (4-12) BUN 9 mg/dL (7-17) Creatinine 0.60 L mg/dL (0.7-1.0) Estim Creat Clear Calc Not Reportable Estimated GFR > 60 (59 - ) Glucose 102 mg/dL (65-110) Calcium 9.7 mg/dL (8.4-10.2) Total Bilirubin 0.5 mg/dL (0.2-1.3) AST 18 U/L (14-36) ALT 13 U/L (6-35) Alkaline Phosphatase 79 U/L (38-126) Total Protein 7.0 g/dL (6.3-8.2) Albumin 3.6 g/dL (3.5-5.1) RPR Non-reactive (NonReactive) Blood Type O Positive Antibody Screen Negative Patient hx anesthesia problems: none Family hx anesthesia problems: none Results Review: All pre-operative results and documents have been reviewed as part of the pre-operative evaluation. [facility] Family History Family History Father FH: kidney cancer Grandparent Breast cancer in female Mother Hypertension Diabetes mellitus Social History Social History Smoking status: Never smoker Second hand tobacco smoke exposure: No Substance use: never Do You Feel Safe in your Home?: Yes Lack of Transportation: No Lack of Food: Never True Current Housing: I Have Housing Concerned About Future Housing: No Difficulty Paying Gas/Electric Bills: No Difficulty Paying for Meds: No Currently Unemployed: No Education: Master's Degree or Higher Difficulty w/ Childcare or Family Care: No Spiritual care concerns: No Anes - Eval Final PreProcedure Day of Procedure 08/12/23 18:44 Patient weight: overweight ASA classification: III Anesthetic plan: proceed Anesthesia type and monitoring: regional epidural and standard monitoring Results Review: All pre-operative results and documents have been reviewed as part of the pre-operative evaluation. Informed Consent: The patient's anesthetic plan and its attendant risks and benefits were discussed with the patient/
[2023-08-12] MEDS: OXYTOCIN 30 UNITS/NS 500 ML 30 UNITS/500 ML BAG 999 UNITS IV CONT (22:25)
--- NOTE | 2023-08-12 22:32 | PM.OBPRVD ---
OB - Vaginal Delivery Note Procedure Delivery date: 08/12/23 Events: Gestational Hypertension Induction method: AROM and Per Misoprostol Protocol Delivery monitor: External FHT and External Uterine Route of delivery: Episiotomy description: None Laceration Description: Perineal - 1st Degree Delivery repair: vicryl Specimen: No Quantitative Blood Loss (ml): 125 Anesthesia type: Epidural Disposition: Floor Complications: No immediate complications [place] Baby Date of : 08/12/23 Time of : 22:21 Weeks of gestation at delivery: 37 gender: Male presentation: vertex position: Left Occiput Anterior Placenta delivery description: Spontaneous Cord Vessel Description: 3 Vessels score one minute: 9 score five minutes: 9 Narrative: mother and baby skin to skin in stable condition
[2023-08-12] MEDS: OXYTOCIN 30 UNITS/NS 500 ML 30 UNITS/500 ML BAG 125 UNITS IV CONT (22:57)
[2023-08-13] VITALS (7 sets, daily range): BP systolic 115–128; BP diastolic 70–83; PULSE 69–91; RESP 18; TEMP 36.3–36.8; O2SAT 98–100
[2023-08-13] MEDS: BENZOCAINE 20% AER SPR (*SP) 56 GM CAN 1 SPRAY TOPICAL (00:41)
[2023-08-13] MEDS: WITCH HAZEL 40 PADS 1 PAD TOPICAL (00:41)
[2023-08-13] MEDS: IBUPROFEN 600 MG TABLET PO ×4 (01:36→20:56)
[2023-08-13 05:03] LABS: Hematocrit 29.3 % (37.0-47.0); Hemoglobin 9.9 g/dL (12.0-15.0); Mean Corpuscular HGB Conc 33.8 g/dl (32-36); Mean Corpuscular Hemoglobin 32.5 pg (26-34); Mean Corpuscular Volume 96.1 fl (80-100); Mean Platelet Volume 10.2 fl (7.4-10.4); Platelet Count Result 132 k/mm3 (150-375); Red Blood Count 3.05 M/mm3 (4.2-5.4); Red Cell Distribution Width 13.1 % (11.5-14.5); White Blood Count 16.2 K/mm3 (4.5-10.0)
[2023-08-13] MEDS: MULTIVIT/MIN/PREN/FOL AC/IRON TABLET 1 TAB PO (07:55)
[2023-08-13] MEDS: POLYSACCHARIDE IRON COMPLEX 150 MG CAPSULE PO ×2 (07:55→17:33)
[2023-08-13] MEDS: DOCUSATE SODIUM 100 MG CAPSULE PO ×2 (07:55→17:34)
[2023-08-13] MEDS: LEVOTHYROXINE SODIUM 25 MCG TABLET PO (07:55)
--- NOTE | 2023-08-13 08:07 | PM.OBPNVD ---
OB - PN: Subj Subjective Date/time seen: 08/13/23 08:07 Patient comments: no complaints, pain well controlled, incisional pain, tolerating diet and flatus present OB - PN: Obj Data Labs 08/13/23 04:50 08/12/23 07:54 Labs: Laboratory Results - last 24 hr 08/12/23 08/13/23 07:54 04:50 WBC 10.8 H 16.2 H RBC 3.61 L 3.05 L Hgb 11.8 L 9.9 L Hct 33.5 L 29.3 L MCV 92.8 96.1 MCH 32.7 32.5 MCHC 35.2 33.8 RDW 13.0 13.1 Plt Count 140 L 132 L MPV 10.2 10.2 Immature Gran % (Auto) 2.4 H Neut % (Auto) 73.0 Lymph % (Auto) 17.1 L [place] % (Auto) 6.3 Eos % (Auto) 0.9 Baso % (Auto) 0.3 Lymph # (Auto) 1.85 [place] # (Auto) 0.7 H Eos # (Auto) 0.1 Baso # (Auto) 0.0 Abs Immat Gran (auto) 0.26 H Absolute Neuts (auto) 7.9 H Absolute Nucleated RBC 0.000 Nucleated RBC % 0.0 Sodium 136 L Potassium 3.5 Chloride 110 H Carbon Dioxide 18 L Anion Gap 8 BUN 9 Creatinine 0.60 L Estim Creat Clear Calc Not Reportable Estimated GFR > 60 Glucose 102 Calcium 9.7 Total Bilirubin 0.5 AST 18 ALT 13 Alkaline Phosphatase 79 Total Protein 7.0 Albumin 3.6 RPR Non-reactive Blood Type O Positive Antibody Screen Negative OB - PN A/P Plan day: 1 Plan: routine care Comments: No problems, routine care Time Spent With Patient Time: Total time spent is greater than 50% in coordination of care (as documented) at patient's floor/unit and/or counseling patient: Exam Const: General: comfortable, no acute distress and alert Resp: Effort & Inspection: normal respiratory effort Auscultation: no crackles, no rales and no rhonchi Cardio: Rate: regular rate Heart sounds: no click, no murmurs and no rubs GI: Inspection: non-distended GI Palp: No Tenderness to palpation present (GI) Auscultation: normal bowel sounds Other: Incision - CDI Extrem: General: normal to inspection, no pedal edema and no calf tenderness
[2023-08-13] MEDS: ACETAMINOPHEN 325 MG TABLET 650 MG PO ×2 (11:48→17:34)
[2023-08-14] MEDS: IBUPROFEN 600 MG TABLET PO (05:13)
[2023-08-14 06:55] VITALS: BP 120/77; PULSE 87; RESP 16; TEMP 36.6; O2SAT 98
[2023-08-14] MEDS: POLYSACCHARIDE IRON COMPLEX 150 MG CAPSULE PO (08:45)
[2023-08-14] MEDS: MULTIVIT/MIN/PREN/FOL AC/IRON TABLET 1 TAB PO (08:45)
--- NOTE | 2023-08-14 10:05 | PM.OBPNVD ---
OB - PN: Subj Subjective Date/time seen: 08/14/23 10:05 Patient comments: no complaints, pain well controlled and tolerating diet OB - PN: Obj Data Labs 08/13/23 04:50 08/12/23 07:54 OB - PN A/P Plan day: 2 Plan: routine care and discharge home Time Spent With Patient Time: Total time spent is greater than 50% in coordination of care (as documented) at patient's floor/unit and/or counseling patient: Exam Const: General: comfortable and no acute distress Resp: Effort & Inspection: normal respiratory effort Auscultation: no rales, no rhonchi and no wheezes Cardio: Rate: regular rate Heart sounds: no click, no murmurs and no rubs GI: GI Palp: Yes Soft to palpation and No Tenderness to palpation present (GI) Auscultation: normal bowel sounds Extrem: General: normal to inspection, no pedal edema and no calf tenderness
--- NOTE | 2023-08-14 10:06 | PM.OBDSVD ---
DS: Admitting Diagnosis Discharge Date August 14, 2023 Admitting Diagnosis term OB - DS: Summary OB Procedures : None OB Procedures Intrapartum: Spontaneous Vag Delivery OB Procedures: : None Peripartum Data Laceration Description: Perineal - 1st Degree Episiotomy description: None Time Spent with Patient Time attestation: Total time spent providing and/or coordinating discharge services: Discharge Plan Discharge Discharging Clinician: Rony Maire Patient Disposition: Home, Self-Care Activity: pelvic rest Diet: regular Patient Instructions: Antibiotic Form Stand Alone Forms: General Discharge Information Follow-up/Referrals: Rony Marie MD [Physician] - Discharge Medications: No Action arnunldj-snd-Ek-FA 1 mg Tablet 1 tablet PO DAILY levothyroxine 25 mcg tablet 25 mcg PO DAILY aspirin 81 mg Capsule 81 mg PO DAILY Date of admission: 08/12/23 06:39 Primary Care Provider: DomenicAidan Admitting Provider: Derek Hartman Attending physician on admission: Derek Hartman Condition: Stable
[2023-08-16 11:27] VITALS: BP 131/82; PULSE 77; RESP 20; TEMP 36.4; O2SAT 99
--- NOTE | 2023-09-11 19:46 | PM.OBTRLD ---
OB - Triage/Final Diagnosis Visit Information Comments/Additional reasons for admission: I have assessed the risk for this patient, Gayle Overton, and determined that she would benefit from observation care. Evaluation Laboratory results: Laboratory Tests 08/12/23 08/13/23 07:54 04:50 WBC 10.8 H 16.2 H RBC 3.61 L 3.05 L Hgb 11.8 L 9.9 L Hct 33.5 L 29.3 L MCV 92.8 96.1 MCH 32.7 32.5 MCHC 35.2 33.8 RDW 13.0 13.1 Plt Count 140 L 132 L MPV 10.2 10.2 Immature Gran % (Auto) 2.4 H Neut % (Auto) 73.0 Lymph % (Auto) 17.1 L [place] % (Auto) 6.3 Eos % (Auto) 0.9 Baso % (Auto) 0.3 Lymph # (Auto) 1.85 [place] # (Auto) 0.7 H Eos # (Auto) 0.1 Baso # (Auto) 0.0 Abs Immat Gran (auto) 0.26 H Absolute Neuts (auto) 7.9 H Absolute Nucleated RBC 0.000 Nucleated RBC % 0.0 Sodium 136 L Potassium 3.5 Chloride 110 H Carbon Dioxide 18 L Anion Gap 8 BUN 9 Creatinine 0.60 L Estim Creat Clear Calc Not Reportable Estimated GFR > 60 Glucose 102 Calcium 9.7 Total Bilirubin 0.5 AST 18 ALT 13 Alkaline Phosphatase 79 Total Protein 7.0 Albumin 3.6 RPR Non-reactive Blood Type O Positive Antibody Screen Negative Final Diagnosis (1) Active labor: Status: Acute
== END 2023-08-14 11:15 | disposition home or self-care (01) | DRG 807 ==
LOC: ANHOB2 08-14 10:39 → ANHLDR 08-16 12:39 → ANHOB2 08-16 12:39
PROVIDERS: Advanced Practice Midwife; Admitting Provider Obstetrics & Gynecology; PCP Student in an Organized Health Care Education/Training Program; Visit Provider Obstetrics & Gynecology
DX: O14.94 Unspecified pre-eclampsia, complicating childbirth (principal); Z37.0 Single live birth; Z3A.37 37 weeks gestation of pregnancy; O13.4 Gestational [pregnancy-induced] hypertension without significant proteinuria, complicating childbirth; O70.0 First degree perineal laceration during delivery
CPT/HCPCS: 36415; 80053; 85025; 85027; 86592; 86850; 86900; 86901; A9270; J2590; J2795; J7120

== ENCOUNTER 2023-08-15 10:39 | Outpatient (CLI) | payer OTHER, SELFPAY ==
[2023-08-15] VITALS (10 sets, daily range): BP systolic 128–137; BP diastolic 84–89; PULSE 84–95; O2SAT 98
[2023-08-15 11:34] LABS: Basophils Percent Auto 0.4 % (0.2-1.2); Eosinophils Absolute Auto 0.2 K/mm3 (0-0.3); Eosinophils Percent Auto 1.8 % (0-4.4); Hematocrit 29.8 % (37.0-47.0); Immature Granulocyte Percent A 4.1 % (0-0.5); Lymphocytes Absolute Auto 1.69 K/mm3 (0.9-3.2); Lymphocytes Percent Auto 17.5 % (18.3-44.2); Mean Corpuscular HGB Conc 33.6 g/dl (32-36); Mean Corpuscular Hemoglobin 32.2 pg (26-34); Mean Corpuscular Volume 95.8 fl (80-100); Mean Platelet Volume 9.7 fl (7.4-10.4); Monocytes Absolute Auto 0.5 K/mm3 (0.1-0.6); Monocytes Percent Auto 4.9 % (2.6-8.5); Neutrophils Absolute Auto 6.9 K/mm3 (1.3-6.7); Neutrophils Percent Auto 71.3 % (45.5-73.1); Platelet Count Result 161 k/mm3 (150-375); Red Blood Count 3.11 M/mm3 (4.2-5.4); Red Cell Distribution Width 13.6 % (11.5-14.5); White Blood Count 9.7 K/mm3 (4.5-10.0)
[2023-08-15 11:45] LABS: Alanine Aminotransferase 14 U/L (6-35); Albumin Level 3.3 g/dL (3.5-5.1); Alkaline Phosphatase 73 U/L (38-126); Anion Gap 6 mmol/L (4-12); Aspartate Amino Transferase 23 U/L (14-36); Bilirubin,Total 0.5 mg/dL (0.2-1.3); Blood Urea Nitrogen 8 mg/dL (7-17); Calcium 9.1 mg/dL (8.4-10.2); Carbon Dioxide 23 mmol/L (22-30); Chloride 110 mmol/L (98-107); Estimated Glomerular Filt Rate > 60; Glucose 122 mg/dL (65-110); Potassium 3.5 mmol/L (3.4-5.0); Sodium 139 mmol/L (137-145); Uric Acid 5.3 mg/dL (2.5-7.5)
== END 2023-08-15 13:15 | disposition home or self-care (01) ==
LOC: ANHOBOP 10:45 → ANHOBPP 10:47
PROVIDERS: PCP Student in an Organized Health Care Education/Training Program; Visit Provider Obstetrics & Gynecology
DX: O13.9 Gestational [pregnancy-induced] hypertension without significant proteinuria, unspecified trimester (principal); Z3A.00 Weeks of gestation of pregnancy not specified
CPT/HCPCS: 36415; 80053; 84550; 85025; 99199

== ENCOUNTER 2023-09-14 15:45 | Outpatient (CLI) | payer OTHER, SELFPAY ==
--- NOTE | 2023-09-14 | ECHO_ITS ---
Patient Info Name: Gayle Overton Age: 32 years : 1990 Gender: Female Ht: 71 in Wt: 185 lbs BSA: 2.06 m2 HR: 73 bpm BP: 131 / 90 mmHg Technical Quality: Good Exam Date: 09/14/2023 4:08 PM Exam Location: Echo Lab Patient Status: Outpatient Admit Date: 09/14/2023 Staff Ordering Physician: Derek Hartman MD Software Security Architect: Drew Brooks RDCS Attending Provider: Derek Hartman MD Referring Physician: Devan RUIZ; Exam Type: CA echo doppler color flow Study Info Indications - light headiness - SOB - palpitations Complete two-dimensional, color flow and Doppler transthoracic echocardiogram is performed. Summary 1. Complete two-dimensional, color flow and Doppler transthoracic echocardiogram is performed. 2. Left ventricular chamber dimension is normal. 3. Left ventricular systolic function is normal, estimated at 60-65%. 4. The left ventricular diastolic function is normal. 5. E/e' 5 is not elevated. 6. There is mild tricuspid valve regurgitation. 7. No pulmonary hypertension, estimated pulmonary arterial systolic pressure is 22 mmHg. Left Ventricle E/e' 5 is not elevated. Left ventricular chamber dimension is normal. Left ventricular systolic function is normal, estimated at 60-65%. The left ventricular diastolic function is normal. Right Ventricle Right ventricular systolic function is normal and with normal TAPSE 2.7 cm. Right ventricular chamber dimension is normal. Left Atria Left atrial chamber dimension is normal. Right Atria Right atrial chamber dimension is normal. Aortic Valve The aortic valve is trileaflet. There is no aortic valve stenosis. There is no aortic valve regurgitation. Pulmonic Valve There is no pulmonic regurgitation. Mitral Valve There is no mitral valve stenosis. There is no mitral valve regurgitation. Tricuspid Valve There is mild tricuspid valve regurgitation. No pulmonary hypertension, estimated pulmonary arterial systolic pressure is 22 mmHg. Pericardium/Pleural There is no pericardial effusion. Inferior Vena Cava Normal inferior vena cava with >50% collapse upon inspiration consistent with normal right atrial pressure, 5 mmHg. Aorta The aortic root size at the sinus of Valsalva is normal. Left Ventricular Outflow Tract Name Value Normal LVOT 2D LVOT Diameter 2.0 cm LVOT Doppler LVOT Peak Gradient 8 mmHg LVOT Mean Gradient 4 mmHg LVOT VTI 30 cm LVOT VTI/AV VTI Ratio 0.7 LVOT Stroke Volume 89 ml LVOT CO 5.2 l/min LVOT CI 2.5 l/min/m2 Pulmonic Valve Name Value Normal PV Doppler PV Peak Gradient 5 mmHg Mitral Valve Name Value No
== END 2023-09-14 15:46 | disposition home or self-care (01) ==
PROVIDERS: PCP Student in an Organized Health Care Education/Training Program; Visit Provider Obstetrics & Gynecology
DX: Z85.71 Personal history of Hodgkin lymphoma (principal); I36.1 Nonrheumatic tricuspid (valve) insufficiency
CPT/HCPCS: 93306

== ENCOUNTER 2024-01-22 08:03 | Emergency (ER) | payer OTHER, SELFPAY ==
--- NOTE | 2024-01-22 08:04 | ED.FEMALEGU ---
HPI - Female Genitourinary General Chief complaint: Urogenital-Female Stated complaint: Urinary Problems Time Seen by Provider: 01/22/24 08:18 Source: patient, RN notes reviewed and old records reviewed Mode of arrival: ambulatory Limitations: no limitations History of Present Illness HPI Narrative: 33-year-old female presents to the [facility] with 10 days of increasing vaginal discharge, irritation, suprapubic cramping, abnormal smell. Denies any burning with urination. Patient thought it was just a yeast infection, took some ibuprofen. Patient recently on an antibiotic. Patient denies chance of , currently breast feeding Denies chances of STD Onset (ago): day(s) (10) Related Data Home Medications Medication Instructions Recorded Confirmed [id number] 1 mg 1 tablet PO DAILY 08/07/21 01/22/24 tablet Allergies Allergy/AdvReac Type Severity Reaction Status Date / Time Penicillins Allergy Unknown Verified 01/22/24 08:13 Review of Systems Review of Systems: All systems reviewed & are unremarkable except as noted in HPI and below Constitutional: Constitutional: Reports no additional constitutional complaints Eyes: Eyes: Reports no additional eye complaints ENT: Reports system reviewed and no additional complaints, except as documented Cardiovascular: Cardiovascular: Reports no additional cardiovascular complaints, Denies chest pain and Denies dyspnea Respiratory: Respiratory: Reports no additional respiratory complaints, Denies chest congestion, Denies cough and Denies dyspnea Gastrointestinal: Gastrointestinal: Reports no additional gastrointestinal complaints, Denies abdominal pain, Denies nausea and Denies vomiting Genitourinary: Genitourinary: Reports as per HPI, Denies genital lesions, Denies hot flashes, Denies dyspareunia, Reports vaginal discharge and Reports vaginal odor Musculoskeletal: Musculoskeletal: Reports no additional musculoskeletal complaints Integumentary/Breasts: Skin/Breast: Reports system reviewed and no additional complaints, except as docu Neurologic: Reports system reviewed and no additional complaints, except as documented Psychiatric: Psychiatric: Reports no additional psychiatric complaints [facility] Family History Family History Father FH: kidney cancer Grandparent Breast cancer in female Mother Hypertension Diabetes mellitus Social History Social History Smoking status: Never smoker Second hand tobacco smoke exposure: No Substance use: never Do You Feel Safe in your Home?: Yes Lack of Transportation: No Lack of Food: Never True Current Housing: I Have Housing Concerned About Future Housing: No Difficulty Paying Gas/Electric Bills: No Difficulty Paying for Meds: No Currently Unemployed: No Education: Master's Degree or Higher Difficulty w/ Childcare or Family Care: No Spiritual care concerns: No Comments At the time of my signature, I reviewed and agree with the nursing past medical, surgical, social, and family history. There is no relevant family history pertinent to the patient complaint. Exam Const: General: cooperative, healthy appearing, comfortable, no acute distress, well developed, alert and well nourished Nutritional Appearance: well nourished Orientation/consciousness: patient oriented x3 Limitations: no limitations HENMT: Head: normal to inspection Ears: hearing grossly normal bilaterally and external ears normal Face/Nose/Sinus: Normal external nose present, normal facial exam and face symmetric Face and sinus: normal facial exam and face symmetric Mouth: Yes Normal oral and palatal mucosa present, Yes lip normal and Yes tongue normal Eyes: General: appearance normal, both eyes and all related structures Alignment and Position: alignment normal Periorbital: periorbital findings normal Nec
[2024-01-22 08:13] VITALS: BP 131/95; PULSE 68; RESP 16; TEMP 36; O2SAT 100
[2024-01-22 08:20] LABS: EDUAAPPEAR Clear; EDUABILI Negative (Negative); EDUABLOOD Negative (Negative); EDUACOLOR1 Yellow; EDUAGLUCOSE Negative (Negative); EDUAKETONE Negative (Negative); EDUALEUKO Negative (Negative); EDUANITRATE Negative (Negative); EDUAPROTEIN Negative (Negative); EDUASPGRAVITY 1.025; EDUAUROBILI 0.2
[2024-01-22 08:33] LABS: BEDSIDEPREGUCG Negative (Negative)
== END 2024-01-22 08:45 | disposition home or self-care (01) ==
PROVIDERS: Emergency Provider Nurse Practitioner; PCP Student in an Organized Health Care Education/Training Program
DX: N76.0 Acute vaginitis (principal)
CPT/HCPCS: 81003; 81025; 99213; G0463

== ENCOUNTER 2024-10-02 16:02 | Outpatient (CLI) | payer OTHER, SELFPAY ==
--- NOTE | ~2024-10-02 | US_ITS ---
US soft tissue head and neck 10/02/2024 16:14 Indication: Palpable mass behind the left ear for 2 months. Tenderness. History of Hodgkin's lymphoma . Procedure: High-resolution Limited ultrasound of the left neck soft tissues in the area of palpable c oncern Comparison: No prior studies for comparison. Findings: There is an oval parallel oriented hypoechoic 8mm mass in the area of palpable concern with internal vascularity and no significant posterior features. No other masses are seen. Impression: 1: Oval parallel oriented hypoechoic 8 mm mass of the left neck soft tissues posteriorly in the area of palpable concern. Differential diagnosis includes reactive lymph nodes secondary to infection or i nflammation, lymphoma and less likely etiology such as schwannoma, branchial cleft cyst, metastatic l ymph node. Recommend biopsy. Reviewed, dictated and finalized at location A. Impression: 1: Oval parallel oriented hypoechoic 8 mm mass of the left neck soft tissues po steriorly in the area of palpable concern. Differential diagnosis includes reac tive lymph nodes secondary to infection or inflammation, lymphoma and less like ly etiology such as schwannoma, branchial cleft cyst, metastatic lymph node. Re commend biopsy.
== END 2024-10-02 16:03 | disposition home or self-care (01) ==
PROVIDERS: PCP Student in an Organized Health Care Education/Training Program; Visit Provider Student in an Organized Health Care Education/Training Program
DX: R22.0 Localized swelling, mass and lump, head (principal)
CPT/HCPCS: 76536